=== PATIENT | female | born 1965 | race Caucasian/White ===

== ENCOUNTER 2016-11-20 10:09 | Observation (INO) | payer OTHER ==
[2016-11-20] VITALS (9 sets, daily range): BP systolic 133–196; BP diastolic 63–106; PULSE 58–71; RESP 16–19; TEMP 97.9–98.7; O2SAT 97–99
[~2016-11-20] VITALS: Ht 162.6 cm; Wt 70.0 kg
[2016-11-20] MEDS ORDERED: ASPIRIN 81 MG CHEW TAB PO ONE (11:15)
[2016-11-20] MEDS ORDERED: SODIUM CHLORIDE 0.9% FLUSH 10 ML FLUSH IVF PRN (11:15)
[2016-11-20] MEDS ORDERED: NITROGLYCERIN 2% OINT 1 GM PACKET TOP ONE (11:15)
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
[2016-11-20 11:41] LABS: AUTOMATED NEUTROPHIL # 3.1 TH/MM3 (1.8-7.7); BASOPHIL % 0.7 % (0.0-2.0); EOSINOPHIL # 0.2 TH/MM3 (0-0.4); EOSINOPHIL % 2.5 % (0.0-4.0); HEMATOCRIT 41.9 % (35.0-46.0); HEMO FLAGS DIFF FINAL; LYMPH % 40.8 % (9.0-44.0); LYMPHOCYTE # 2.6 TH/MM3 (1.0-4.8); MEAN CELL VOLUME 84.6 FL (80.0-100.0); MEAN CORPUSCULAR HEMOGLOBIN 28.5 PG (27.0-34.0); MEAN CORPUSCULAR HGB CONC 33.7 % (32.0-36.0); MONO % 6.6 % (0.0-8.0); NEUT % 49.4 % (16.0-70.0); PLATELET COUNT 248 TH/MM3 (150-450); RED BLOOD COUNT 4.96 MIL/MM3 (4.00-5.30); RED CELL DISTRIBUTION WIDTH 13.8 % (11.6-17.2); WHITE BLOOD COUNT 6.3 TH/MM3 (4.0-11.0)
--- NOTE | 2016-11-20 11:44 | RADRPT ---
EXAM DATE/TIME: 11/20/2016 11:24 [facility] COMPARISON: No previous studies available for comparison. INDICATIONS : Mid sternal chest pains, hypertension. MEDICAL HISTORY : Hypertension. SURGICAL HISTORY : None. ENCOUNTER: Initial ACUITY: 1 day PAIN SCORE: 6/10 LOCATION: Bilateral chest FINDINGS: A single view of the chest demonstrates the lungs to be symmetrically aerated without evidence of mas s, infiltrate or effusion. The cardiomediastinal contours are unremarkable. Osseous structures are intact. CONCLUSION: No acute disease. Serafin Hassan MD FACR on November 20, 2016 at 11:42 Board Certified Radiologist. This report was verified electronically.
[2016-11-20 11:53] LABS: APTT (PATIENT) 24.5 SEC (24.3-30.1); PROTHROMBIN TIME - PATIENT 10.6 SEC (9.8-11.6)
[2016-11-20 12:02] LABS: ANION GAP 6 MEQ/L (5-15); BICARBONATE 27.6 MEQ/L (21.0-32.0); BLOOD UREA NITROGEN 9 MG/DL (7-18); CHLORIDE 106 MEQ/L (98-107); GLOMERULAR FILTRATION RATE 76 ML/MIN (>89); MAGNESIUM 2.4 MG/DL (1.5-2.5); POTASSIUM 4.2 MEQ/L (3.5-5.1); SODIUM (NA) 140 MEQ/L (136-145)
[2016-11-20 12:06] LABS: CREATINE KINASE 236 U/L (26-192)
[2016-11-20 12:18] LABS: CKMB 2.1 NG/ML (0.5-3.6)
[2016-11-20] MEDS ORDERED: ACETAMINOPHEN/HYDROcodone 325 MG/7.5 MG TAB PO PRN (14:15)
[2016-11-20] MEDS ORDERED: ALPRAZolam 0.25 MG TAB PO PRN (14:15)
[2016-11-20] MEDS ORDERED: SODIUM CHLORIDE 0.9% FLUSH 5 ML FLUSH IVF PRN (14:15)
[2016-11-20] MEDS ORDERED: ACETAMINOPHEN 500 MG CPLT PO PRN (14:15)
[2016-11-20] MEDS ORDERED: ONDANSETRON HCL 4 MG/2 ML VIAL IV PRN (14:15)
[2016-11-20] MEDS ORDERED: cloNIDine HCL 0.1 MG TAB PO PRN (14:15)
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
[2016-11-20 15:04] LABS: CREATINE KINASE 202 U/L (26-192)
[2016-11-20 15:16] LABS: CKMB 1.8 NG/ML (0.5-3.6)
[2016-11-20] MEDS: LISINOPRIL 10 MG TAB PO SCH (17:32)
[2016-11-20 18:12] LABS: CREATINE KINASE 194 U/L (26-192)
[2016-11-20 18:25] LABS: CKMB 2.2 NG/ML (0.5-3.6)
--- NOTE | 2016-11-20 19:10 | EKG ---
Date Performed: 11/20/2016 Time Performed: 10:55:35 PTAGE: 50 years EKG: Sinus rhythm WITH SHORT CO INTERVAL VOLTAGE CRITERIA FOR LVH ABNORMAL ECG NO PREVIOUS TRACING DOCTOR: Magui Hua Interpretating Date/Time 11/20/2016 19:08:20
[2016-11-20] MEDS: SODIUM CHLORIDE 0.9% FLUSH 5 ML FLUSH IVF SCH (21:00)
[2016-11-21 04:35] VITALS: BP 138/72; PULSE 60; RESP 19; TEMP 98.2; O2SAT 97
[2016-11-21 07:17] VITALS: O2SAT 93
[2016-11-21 07:41] VITALS: BP 129/75; PULSE 58; RESP 20; TEMP 97.9; O2SAT 98
[2016-11-21 07:58] VITALS: PULSE 60
[2016-11-21] MEDS: SODIUM CHLORIDE 0.9% FLUSH 5 ML FLUSH IVF SCH (09:00)
[2016-11-21] MEDS ORDERED: ASPIRIN 325 MG TAB PO SCH (09:00)
[2016-11-21] MEDS ORDERED: REGADENOSON INJ 0.4 MG/5 ML SYR ONE (09:58)
--- NOTE | 2016-11-21 11:10 | RADRPT ---
EXAM DATE/TIME: 11/21/2016 09:18 [facility] COMPARISON: No previous studies available for comparison. INDICATIONS : Two weeks of intermittent left sided chest pain. Angina. DOSE: 25.5 mCi Tc99m Myoview at stress. 8.7 mCi Tc99m Myoview at rest. 0.4 mg Lexiscan STRESS SYMPTOMS: Dyspnea. EJECTION FRACTION: 61% MEDICAL HISTORY : Hypertension. SURGICAL HISTORY : Bilateral feet. ENCOUNTER: Initial ACUITY: 1 day PAIN SCALE: 5/10 LOCATION: Left chest TECHNIQUE: The patient underwent pharmacologic stress with infusion of prescribed dose. Continuous ECG tracing was monitored during stress. Gated SPECT imaging was performed after stress and conventional SPECT i maging was performed at rest. The examination was performed on a SPECT/CT scanner, both attenuation and non-corrected datasets were reviewed. FINDINGS: DISTRIBUTION: The maximum perfused segment at stress is in the anterolateral wall. PERFUSION STUDY: The pattern of perfusion at stress is within normal limits. GATED STUDY: There is intact wall motion and thickening without hypokinetic or dyskinetic segments. CONCLUSION: 1. No reversibility identified to suggest ischemia. 2. Normal wall motion and ejection fraction 61%. RISK CATEGORY: Low (<1% Annual Mortality Rate) Nico Batres MD on November 21, 2016 at 11:00 Board Certified Radiologist. This report was verified electronically.
[2016-11-21] MEDS: LISINOPRIL 10 MG TAB PO SCH (11:11)
[2016-11-21] MEDS ORDERED: LISI10TA3 PO (11:38)
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
[2016-11-21 12:14] VITALS: BP 147/81; PULSE 68; RESP 18; O2SAT 94
--- NOTE | 2016-11-22 09:28 | TR ---
Date Performed: 11/21/2016 Time Performed: 10:00:38 DOCTOR: Rebecca Cabral DRUG LIST: CLINICAL HISTORY: REASON FOR TEST: Angina REASON FOR ENDING: OBSERVATION: CONCLUSION: Lexiscan stress test was performed under standard four minute protocol. Radionuclid e was injected one minute prior to ending the test. No electrocardiographic abormalities were present to suggest ischemia. Nuclear imaging and interpretation are pending. COMMENTS:
--- NOTE | 2016-11-22 09:30 | EKG ---
Date Performed: 11/20/2016 Time Performed: 12:08:12 PTAGE: 50 years EKG: SINUS BRADYCARDIA MODERATE VOLTAGE CRITERIA FOR LVH, CONSIDER NORMAL VARIANT NONSPECIFIC T- WAVE ABNORMALITY BORDERLINE ECG Since previous tracing, no significant change noted NO PREVIOUS TRACING DOCTOR: Rebecca Cabral Interpretating Date/Time 11/22/2016 09:30:09
--- NOTE | 2016-11-22 09:31 | EKG ---
Date Performed: 11/20/2016 Time Performed: 17:37:33 PTAGE: 50 years EKG: SINUS BRADYCARDIA BORDERLINE ECG Since previous tracing, no significant change noted NO PREVIOUS TRACING DOCTOR: Rebecca Cabral Interpretating Date/Time 11/22/2016 09:30:30
== END 2016-11-21 14:26 | disposition home or self-care (01) ==
LOC: NEPE 10:09 → NEDA 13:01 → NEPGCP 14:52
PROVIDERS: ADMIT Internal Medicine Cardiovascular Disease; ATTEND Internal Medicine Cardiovascular Disease
DX: R07.89 Other chest pain (principal); I10 Essential (primary) hypertension; Z82.49 Family history of ischemic heart disease and other diseases of the circulatory system
CPT/HCPCS: 71010; 78452; 80048; 82550; 82552; 83735; 84484; 84703; 85025; 85610; 85730; 93005; 93017; 99285; A9502; G0378; J2785

== ENCOUNTER 2017-01-14 10:32 | Emergency (ER) | payer OTHER ==
[~2017-01-14 10:32] MED LIST: LISI10TA3 PO
[2017-01-14 10:33] VITALS: BP 140/66; PULSE 100; RESP 18; TEMP 98.1; O2SAT 97
[2017-01-14] MEDS ORDERED: IBUP200C PO (10:39)
[2017-01-14] MEDS ORDERED: OFLO0.3D9 LEFT EAR (10:44)
--- NOTE | 2017-01-14 10:45 | PD ---
HPI Chief Complaint: ENT Complaint Time Seen by Provider: 10:39 Travel History International Travel<30 days: No Contact w/Intl Traveler<30days: No Traveled to known affect area: No History of Present Illness HPI 51-year-old female here with complaint of left ear pain. Patient describes having a viral type URI over the course the last week. For the last 2 days now she's had increasing pain in the left ear, decreased hearing and drainage starting today. No fevers or chills. Her nasal congestion and cough that since resolved. Patient states that [place] the [place] weekend and was not wearing any earplugs and is concerned she may have damaged her hearing. PFSH Past Medical History Cardiac Catheterization: No Diabetes: No Diminished Hearing: No Hypertension: Yes ?: Not Past Surgical History Coronary Artery Bypass Graft: No Gynecologic Surgery: Yes (cyst) Oral Surgery: Yes (wisdom teeth) Other Surgery: Yes (bilat feet) Social History Alcohol Use: No Tobacco Use: No Substance Use: No Allergies-Medications (Allergen,Severity, Reaction): Coded Allergies: No Known Allergies (Unverified , 01/14/17) Reported Meds & Prescriptions Reported Meds & Active Scripts Active Ofloxacin Otic Drops 0.3 % Drops 10 Drop LEFT EAR DAILY Lisinopril 10 Mg Tab 10 Mg PO DAILY Reported Ibuprofen 200 Mg Cap 200 Mg PO Q4H PRN Review of Systems Except as stated in HPI: all other systems reviewed are Neg Physical Exam Narrative GENERAL: Well-appearing female in no acute distress SKIN: Focused skin assessment warm/dry. HEAD: Normocephalic. EYES: No scleral icterus. No injection or drainage. ENT: Left external auditory canal is edematous with purulent discharge. Right auditory canal is clear, TMs are clear. No nasal bleeding or discharge. Mucous membranes pink and moist. NECK: Shotty left anterior cervical lymphadenopathy CARDIOVASCULAR: Regular rate and rhythm. RESPIRATORY: No accessory muscle use. MUSCULOSKELETAL: Normal gait NEUROLOGICAL: Awake and alert. Normal speech. PSYCHIATRIC: Appropriate mood and affect; insight and judgment normal. Data Data Last Documented VS Vital Signs Date Time Temp Pulse Resp B/P Pulse Ox O2 Delivery O2 Flow Rate FiO2 01/14/17 10:33 98.1 100 18 140/66 97 Room Air MDM Medical Decision Making Medical Screen Exam Complete: Yes Emergency Medical Condition: Yes Medical Record Reviewed: Yes Differential Diagnosis 51-year-old female here with left ear pain. Exam is consistent with otitis externa, differential includes otitis media, TM perforation Narrative Course Wick was placed in the left ear and patient will be discharged home with antibiotic drops. Procedures Procedure Narrative Ear wick was placed in the left external auditory canal without any difficulty. Diagnosis Primary Impression: Otitis externa, left Qualified Code: H60.502 - Acute otitis externa of left ear, unspecified type Referrals: Primary Care Physician as needed Additional Instructions: Antibiotic drops as prescribed. The wick placed in the ear will naturally fall out. You do not need to remove this. Med/Other Pt SpecificInfo: Prescription(s) given Scripts Ofloxacin Otic Drops 0.3 % Drops10 Drop LEFT EAR DAILY #1 BOTTLE Ref 0 Prov:Hedy Edwards MD 01/14/17 Disposition: 01 DISCHARGE HOME Condition: Stable Hedy Edwards MD Jan 14, 2017 10:45
[2017-01-14] MEDS ORDERED: LISI10TA3 PO (10:51)
== END 2017-01-14 11:00 | disposition home or self-care (01) ==
LOC: NEPD 10:32
DX: H60.502 Unspecified acute noninfective otitis externa, left ear (principal); I10 Essential (primary) hypertension
CPT/HCPCS: 99283

== ENCOUNTER 2017-03-29 11:33 | Emergency (ER) | payer OTHER ==
[~2017-03-29] VITALS: Ht 162.6 cm; Wt 74.0 kg
[~2017-03-29 11:33] MED LIST changes: +IBUP200C PO; +OFLO0.3D9 LEFT EAR
[2017-03-29 12:04] VITALS: BP 143/72; PULSE 64; RESP 18; TEMP 98.1; O2SAT 96
[2017-03-29 12:09] VITALS: BP 143/72; PULSE 65; RESP 18; TEMP 98.1; O2SAT 98
[2017-03-29] MEDS ORDERED: SODIUM CHLOR 0.9% 1000 ML INJ 1,000 ML IV ONE (12:23)
--- NOTE | 2017-03-29 12:23 | PD ---
HPI Chief Complaint: Syncope/Near-Syncope Time Seen by Provider: 12:11 Travel History International Travel<30 days: No Contact w/Intl Traveler<30days: No Traveled to known affect area: No History of Present Illness HPI 51 YO F with PMH of HTN presents to the ED via EMS for evaluation of syncopal episode. The patient states that she was at a blood [facility]. She heard there would be food trucks so she did not eat before giving blood. Shortly after donating blood she had a syncopal episode and a single episode of vomiting. On presentation she denies headache, dizziness, chest pain, palpitations, nausea, vomiting, weakness of the extremities. She states that she feels a little tired and hungry, but is otherwise feeling well. PFSH Past Medical History Cardiac Catheterization: No Diabetes: No Diminished Hearing: No Hypertension: Yes ?: Not LMP: menopause Past Surgical History Coronary Artery Bypass Graft: No Gynecologic Surgery: Yes (cyst) Oral Surgery: Yes (wisdom teeth) Other Surgery: Yes (bilat feet) Social History Alcohol Use: No Tobacco Use: No Substance Use: No Allergies-Medications (Allergen,Severity, Reaction): Coded Allergies: No Known Allergies (Unverified , 03/29/17) Reported Meds & Prescriptions Reported Meds & Active Scripts Active Lisinopril 10 Mg Tab 10 Mg PO DAILY Reported Ibuprofen 200 Mg Cap 200 Mg PO Q4H PRN Review of Systems Except as stated in HPI: all other systems reviewed are Neg Physical Exam Narrative GENERAL: Well-nourished, well-developed pleasant white female in no acute distress. SKIN: Focused skin assessment warm/dry. HEAD: Normocephalic. EYES: No scleral icterus. No injection or drainage. PERRLA. EOMI. NECK: Supple, trachea midline. No JVD or lymphadenopathy. CARDIOVASCULAR: Regular rate and rhythm without murmurs, gallops, or rubs. RESPIRATORY: Breath sounds clear and equal bilaterally. No accessory muscle use. GASTROINTESTINAL: Abdomen soft, non-tender, nondistended. Active bowel sounds. MUSCULOSKELETAL: No cyanosis, or edema. NEUROLOGICAL: Awake and alert. Cranial nerves II through XII intact. Motor and sensory grossly within normal limits. 5/5 muscle strength in all muscle groups. Normal speech. BACK: Nontender without obvious deformity. No CVA tenderness. Data Data Last Documented VS Vital Signs Date Time Temp Pulse Resp B/P (MAP) Pulse Ox O2 Delivery O2 Flow Rate FiO2 03/29/17 12:09 58 18 98 Room Air 03/29/17 12:09 98.1 143/72 (95) Orders Orders Electrocardiogram (03/29/17 12:23) Basic Metabolic Panel (Bmp) (03/29/17 12:23) Complete Blood Count With Diff (03/29/17 12:23) Sodium Chlor 0.9% 1000 Ml Inj (Ns 1000 M (03/29/17 12:23) Urinalysis - C+S If Indicated (03/29/17 12:29) Calcium Carbonate Chew (Tums Chew) (03/29/17 14:00) Labs Laboratory Tests Test 03/29/17 12:50 03/29/17 14:10 White Blood Count 9.0 TH/MM3 Red Blood Count 4.33 MIL/MM3 Hemoglobin 11.7 GM/DL Hematocrit 37.1 % Mean Corpuscular Volume 85.8 FL Mean Corpuscular Hemoglobin 27.0 PG Mean Corpuscular Hemoglobin Concent 31.5 % Red Cell Distribution Width 14.5 % Platelet Count 235 TH/MM3 Mean Platelet Volume 9.0 FL Neutrophils (%) (Auto) 81.1 % Lymphocytes (%) (Auto) 13.5 % Monocytes (%) (Auto) 4.0 % Eosinophils (%) (Auto) 1.0 % Basophils (%) (Auto) 0.4 % Neutrophils # (Auto) 7.3 TH/MM3 Lymphocytes # (Auto) 1.2 TH/MM3 Monocytes # (Auto) 0.4 TH/MM3 Eosinophils # (Auto) 0.1 TH/MM3 Basophils # (Auto) 0.0 TH/MM3 CBC Comment DIFF FINAL Differential Comment Blood Urea Nitrogen 13 MG/DL Creatinine 0.78 MG/DL Random Glucose 123 MG/DL Calcium Level 8.3 MG/DL Sodium Level 142 MEQ/L Potassium Level 3.8 MEQ/L Chloride Level 110 MEQ/L Carbon Dioxide Level 25.2 MEQ/L Anion Gap 7 MEQ/L Estimat Glomerular Filtration Rate 78 ML/MIN Urine Color LIGHT-YELLOW Urine Turbidity CLEAR Urine pH 6.5 Urine Specific [place] 1.013 Urine Protein NEG mg/dL Urine Glucose (UA) NEG mg/dL Urine Ketones NEG mg/dL Urine Occult Blood NEG Urine Nitrite NEG Urine Bilirubin NEG Urine Urobilinogen LESS THAN 2.0 MG/DL Urine Leukocyte Esterase NEG Urine RBC 1 /hpf Urine WBC LESS THAN 1 /hpf Urine Squamous Epithelial Cells 1 /hpf Urine Bacteria RARE /hpf Urine Hyaline Casts 1 /lpf Urine Mucus FEW /lpf Microscopic Urinalysis Comment CULT NOT INDICATED MDM Medical Decision Making Medical Screen Exam Complete: Yes Emergency Medical Condition: Yes Differential Diagnosis Vasovagal syncope versus hypoglycemia versus metabolic derangement versus dehydration versus other Narrative Course 51-year-old female presents to the ED via EMS after syncopal episode and single episode of vomiting after donating blood at the [facility] today. The patient states that she did not eat this morning before giving blood because she heard that there would be food trucks at the event. Asymptomatic on presentation. Vitals reviewed, stable on arrival. Blood glucose 111 on presentation. Physical exam is unremarkable. EKG: Rate 59, sinus rhythm. OH interval 118, QRS 85, QTC 427. No acute ST changes. Reviewed by Dr. Givens. CBC: no leukocytosis or or anemia. CMP: mild calcium deficiency. Administered 1 g Ca chew UA: No culture indicated I suspect this is an episode of vasovagal syncope or possible hypoglycemia at the event, now resolved after the patient ate a donut and juice on scene. Patient is stable, discharged for follow-up with her primary care provider. Diagnosis Primary Impression: Vasovagal syncope Referrals: Primary Care Physician Patient Instructions: General Instructions, Syncope (ED) Additional Instructions: Rest, hydrate. Return to normal, gentle activities as tolerated. Follow up with your primary care provider. Return to the ED for any urgent or emergent medical condition. Disposition: 01 DISCHARGE HOME Condition: Stable Basia Ayala Mar 29, 2017 12:23
[2017-03-29 13:15] LABS: AUTOMATED NEUTROPHIL # 7.3 TH/MM3 (1.8-7.7); BASOPHIL % 0.4 % (0.0-2.0); EOSINOPHIL # 0.1 TH/MM3 (0-0.4); HEMATOCRIT 37.1 % (35.0-46.0); HEMO FLAGS DIFF FINAL; LYMPH % 13.5 % (9.0-44.0); LYMPHOCYTE # 1.2 TH/MM3 (1.0-4.8); MEAN CELL VOLUME 85.8 FL (80.0-100.0); MEAN CORPUSCULAR HGB CONC 31.5 % (32.0-36.0); NEUT % 81.1 % (16.0-70.0); PLATELET COUNT 235 TH/MM3 (150-450); RED BLOOD COUNT 4.33 MIL/MM3 (4.00-5.30); RED CELL DISTRIBUTION WIDTH 14.5 % (11.6-17.2)
[2017-03-29 13:30] LABS: BICARBONATE 25.2 MEQ/L (21.0-32.0); POTASSIUM 3.8 MEQ/L (3.5-5.1)
[2017-03-29] MEDS ORDERED: CALCIUM CARBONATE 500 MG CHEWABLE TAB CHEW ONE (14:00)
[2017-03-29 14:41] LABS: BACTERIA, URINE RARE /hpf; BLOOD, URINE NEG (NEG); COMMENT (UR) CULT NOT INDICATED; CULTURE IF INDICATED CULT NOT INDICATED; GLUCOSE,URINE NEG (NEG); HYALINE CAST, URINE 1 /lpf (RARE); KETONE, URINE NEG (NEG); MUCUS URINE FEW /lpf (OCC); NITRITE,URINE NEG (NEG); PH, URINE 6.5 (5.0-8.5); SQUAMOUS EPITHELIAL CELL URINE 1 /hpf (0-5); URINE COLOR LIGHT-YELLOW (YELLW/STRAW)
[2017-03-29 15:31] VITALS: BP 121/71
--- NOTE | 2017-03-30 12:59 | EKG ---
Date Performed: 03/29/2017 Time Performed: 13:11:31 PTAGE: 51 years EKG: SINUS BRADYCARDIA WITH SHORT OR INTERVAL LOW QRS VOLTAGE IN PRECORDIAL LEADS MINIMAL VOLTAG E CRITERIA FOR LVH, CONSIDER NORMAL VARIANT BORDERLINE ECG PREVIOUS TRACING : 11/20/2016 17.37 No significant change from previous tracing noted. DOCTOR: Vijay Potts Interpretating Date/Time 03/30/2017 12:57:36
== END 2017-03-29 16:00 | disposition home or self-care (01) ==
LOC: NEPE 11:33
DX: R55 Syncope and collapse (principal); R94.31 Abnormal electrocardiogram [ECG] [EKG]; I10 Essential (primary) hypertension
CPT/HCPCS: 80048; 81001; 85025; 93005; 96360; 99284; J7030

== ENCOUNTER 2017-05-11 10:31 | Emergency (ER) | payer OTHER ==
[~2017-05-11] VITALS: Ht 162.6 cm; Wt 70.0 kg
[~2017-05-11 10:31] MED LIST changes: -OFLO0.3D9 LEFT EAR
[2017-05-11 10:32] VITALS: BP 175/94; PULSE 87; RESP 16; TEMP 98.4; O2SAT 98
[2017-05-11] MEDS ORDERED: TETANUS/DIPHTHERIA TOXOID ADULT 0.5 ML VIAL IM ONE (10:45)
[2017-05-11] MEDS ORDERED: CLIN150C14 PO (10:55)
[2017-05-11] MEDS ORDERED: BACT800T5 PO (10:55)
[2017-05-11] MEDS ORDERED: MOBI15TA PO (10:56)
--- NOTE | 2017-05-11 10:56 | PD ---
HPI Chief Complaint: Bite or Sting Time Seen by Provider: 10:41 Travel History International Travel<30 days: No Contact w/Intl Traveler<30days: No Traveled to known affect area: No History of Present Illness HPI 51-year-old female complains of pain swelling and infected lesion right leg. Patient states that she has an insect bite the right leg about 10 days ago. Patient states that she has increasing redness swelling and pain in the right leg since then. Patient denies any fever chills. Patient denies any other injury. Patient states the pain is sharp pain when he pain localized to right low leg on the calf area. Patient denies any pain radiation. On a scale of 1- 10 the pain is a 7. Patient states that she is not up-to-date with TD booster. PFSH Past Medical History Cardiac Catheterization: No Diabetes: No Diminished Hearing: No Hypertension: Yes Tetanus Vaccination: Unknown ?: Not Menopausal: Yes Past Surgical History Coronary Artery Bypass Graft: No Gynecologic Surgery: Yes (cyst) Oral Surgery: Yes (wisdom teeth) Other Surgery: Yes (bilat feet) Social History Alcohol Use: No Tobacco Use: No Substance Use: No Allergies-Medications (Allergen,Severity, Reaction): Coded Allergies: No Known Allergies (Unverified , 03/29/17) Reported Meds & Prescriptions Reported Meds & Active Scripts Active Lisinopril 10 Mg Tab 10 Mg PO DAILY Reported Ibuprofen 200 Mg Cap 200 Mg PO Q4H PRN Review of Systems General / Constitutional: No: Fever Eyes: No: Visual changes HENT: No: Headaches Cardiovascular: No: Chest Pain or Discomfort Respiratory: No: Shortness of Breath Gastrointestinal: No: Abdominal Pain Genitourinary: No: Dysuria Musculoskeletal: No: Pain Skin: No Rash Neurologic: No: Weakness Psychiatric: No: Depression Endocrine: No: Polydipsia Hematologic/Lymphatic: No: Easy Bruising Physical Exam Narrative GENERAL: Well-nourished, well-developed patient. SKIN: Focused skin assessment warm/dry. HEAD: Normocephalic. EYES: No scleral icterus. No injection or drainage. NECK: Supple, trachea midline. No JVD or lymphadenopathy. CARDIOVASCULAR: Regular rate and rhythm without murmurs, gallops, or rubs. RESPIRATORY: Breath sounds equal bilaterally. No accessory muscle use. GASTROINTESTINAL: Abdomen soft, non-tender, nondistended. MUSCULOSKELETAL: No cyanosis, or edema. BACK: Nontender without obvious deformity. No CVA tenderness. Patient has a large ulcer lesion on the right calf area. Mild soft tissue swelling tenderness on palpation. No induration. No discharge. Data Data Last Documented VS Vital Signs Date Time Temp Pulse Resp B/P (MAP) Pulse Ox O2 Delivery O2 Flow Rate FiO2 05/11/17 10:32 98.4 87 16 175/94 (121) 98 Orders Orders Tetanus/Diphtheria Tox Adult (Tetanus/Di (05/11/17 10:45) Wound Care (05/11/17 10:45) MDM Medical Decision Making Medical Screen Exam Complete: Yes Emergency Medical Condition: Yes Differential Diagnosis Differential diagnosis including cellulitis, abscess. Narrative Course 51-year-old female painful large right leg ulcer. TD booster given. Polysporin ointment with dressing applied. Diagnosis Primary Impression: Cellulitis of right leg Patient Instructions: General Instructions Additional Instructions: Dressing changes daily. Take antibiotics as directed. Follow-up with personal physician. Return if worse. Med/Other Pt SpecificInfo: Prescription(s) given Scripts Meloxicam (Mobic) 15 Mg Tab 15 MG PO DAILY for Pain, #14 TAB 0 Refills Prov: Catrachito Rushing MD 05/11/17 Clindamycin (Clindamycin) 150 Mg Cap 2 TAB PO QID for Infection, #80 CAP 0 Refills Prov: Catrachito Rushing MD 05/11/17 Sulfamethoxazole-Trimethoprim (Bactrim DS) 800-160 Mg Tab 1 TAB PO BID for Infection, #20 TAB 0 Refills Prov: Catrachito Rushing MD 05/11/17 Disposition: 01 DISCHARGE HOME Condition: Stable Catrachito Rushing MD May 11, 2017 10:56
== END 2017-05-11 11:11 | disposition home or self-care (01) ==
LOC: NEPD 10:31
DX: L03.115 Cellulitis of right lower limb (principal); I10 Essential (primary) hypertension; Z23 Encounter for immunization
CPT/HCPCS: 90471; 90714